=== PATIENT | male | born 1965 | race Caucasian/White ===

== ENCOUNTER 2022-06-17 18:28 | Emergency (ER) | payer OTHER ==
[~2022-06-17] VITALS: Ht 175.3 cm; Wt 59.0 kg
--- NOTE | 2022-06-17 18:40 | NUR ---
COVID AND FLU SWABS DONE, EKG DONE
[2022-06-17 18:44] VITALS: BP_SYST 144
--- NOTE | 2022-06-17 18:48 | NUR ---
TRIAGED TO DENIS, INSTRUCTED TO NOTIFY NURSE IF ANY CHANGES
--- NOTE | 2022-06-17 20:03 | NUR ---
ER Dr.Dela Hawkins in waiting room examining patient.
--- NOTE | 2022-06-17 20:03 | NUR ---
Henri timmons in [facility] - 06/18/22 at [email or web address]Dela Hawkins in waiting room examining patient.
[2022-06-17] MEDS ORDERED: ONDA-8 TL (20:06)
[2022-06-17] MEDS ORDERED: IBUP-1969 PO (20:06)
[2022-06-17] MEDS ORDERED: DOXY100T2 PO (20:06)
[2022-06-17] MEDS ORDERED: ALBMDI INH (20:06)
[2022-06-17] MEDS ORDERED: ACET-2634 PO (20:06)
[2022-06-17] MEDS ORDERED: OSEL75CA PO (20:07)
[2022-06-17] MEDS ORDERED: ACETAMINOPHEN 500 MG TABLET PO ONE (22:15)
--- NOTE | 2022-06-17 22:20 | NUR ---
Patient presents to the ED for evaluation of persistent fevers associated with nonproductive cough, diffuse, aching chest pain only with coughing since yesterday. Otherwise, no nausea, vomiting, shortness of breath, headache, dizziness, hemoptysis, runny nose, or other complaints. Patient respirations even unlabored, not in distress. Patient ambulates with steady gait.
[2022-06-17 22:45] VITALS: BP_SYST 142
--- NOTE | 2022-06-17 22:45 | NUR ---
Note tammieone in EDM - 06/18/22 at 0046 by [email or web address] Patient given written and verbal discharge instructions and verbalizes understanding. ER MD discussed with patient the results and treatment provided. Patient in stable condition. ID arm band removed. Rx of Tamiflu, Tylenol, ventolin inhaler, Doxycycline Hyclate, Ibuprofen, Zofran sent to [facility] by ER MD. Patient educated on pain management and to follow up with PMD. Pain Scale 0/10. Opportunity for questions provided and answered.
--- NOTE | 2022-06-17 22:45 | NUR ---
Patient given written and verbal discharge instructions and verbalizes understanding. ER MD discussed with patient the results and treatment provided. Patient in stable condition. ID arm band removed. Rx of Tamiflu, Tylenol, ventolin inhaler, Doxycycline Hyclate, Ibuprofen, Zofran sent to [facility] by ER MD. Patient educated on pain management and to follow up with PMD. Pain Scale 0/10. Opportunity for questions provided and answered.
== END 2022-06-17 22:45 | disposition home or self-care (01) ==
LOC: SED 18:28
DX: J10.1 Influenza due to other identified influenza virus with other respiratory manifestations (principal); J20.8 Acute bronchitis due to other specified organisms; R50.9 Fever, unspecified; R05.9 Cough, unspecified; R07.9 Chest pain, unspecified; I10 Essential (primary) hypertension; Z79.899 Other long term (current) drug therapy; Z20.822 Contact with and (suspected) exposure to COVID-19
CPT/HCPCS: 36415; 99283